=== PATIENT | male | born 1950 | race Caucasian/White ===

== ENCOUNTER → 2017-05-07 | Outpatient (CLI) | payer MEDICARE, BC ==
[~2017-05-07] MED LIST: CALAN PO; FLOMAX0.4 M1 PO; LATANOPROST2.5 ML OU; LO-DOSE ASPIRIN81 M1 PO; NAPROXEN250 MG PO; PAXIL PO; PERCOCET 5/321 UDTAB PO; RELPAX40 MG PO; ZONEGRAN100 MG PO
--- NOTE | ~2017-05-07 | CT130 ---
[facility] A Service of [facility] & [facility] RADIOLOGY TEXT RESULTS PATIENT: MICHAEL ANTONIO LOCATION: [facility] : 48 UNIT #: [id number] AGE: [address]: ARETHA WARREN APRN SEX: M ORDER DR: [id number] [facility] [address] [place], [place] [address] [id number] O MR#: [id number] Acc #: [id number] NAME: MICHAEL ANTONIO : 1950 SEX: M STUDY DATE/TIME: 05/07/2017 12:22 UNIT: [facility] ROOM: STUDY DESCRIPTION: CT Upper Ext Rt Wo Cont Attending Physician: Aretha Warren Aprn Referring Physician: Aretha Warren Aprn Ordering Physician: Aretha Warren Aprn Primary Care Physician: Meagan Mtz M.D. MEDICAL IMAGING REPORT This report is preliminary unless electronic signature is present EXAM CT right shoulder without contrast-with coronal and sagittal reconstructions. DATE OF EXAM: 05/07/2017. HISTORY - Order states CT right shoulder preop planning. Right rotator cuff tear for arthropathy. Rotator cuff tear arthropathy. History sheet states right shoulder surgery 05/15/2017. First surgery 1.5 years ago. Limited motion and pain for 3 months. No known injury. Comparison - Right shoulder radiographs 05/03/2017 and MRI arthrogram right shoulder 10/16/2016 There is advanced glenohumeral cuff tear arthropathy with joint space narrowing, osteophyte formation, and cranial humeral migration with acromial abutment. Small subarticular sclerosis and cyst are noted of the humeral head and glenoid. No fracture is noted. Rotator cuff muscle atrophy is better demonstrated on the MRI of 10/16/2016. No large effusion or calcified loose body is noted. Visualized right thorax is unremarkable. IMPRESSION 1. Advanced right cuff tear arthropathy detailed above. 2. Moderate hypertrophic AC joint arthrosis. 3. Muscle atrophy is better depicted on the MRI of 10/16/2016. 4. No fracture or acute abnormality. Dictated by... Krystina Kingston M.D. [facility] A Service of [facility] & [facility] RADIOLOGY TEXT RESULTS PATIENT: MICHAEL ANTONIO LOCATION: [facility] : 48 UNIT #: [id number] AGE: [address]: ARETHA WARREN APRN SEX: M ORDER DR: THIS IS AN ELECTRONICALLY VERIFIED REPORT Krystina Kingston M.D. at 05/08/2017 11:08 AM Huong TD: 05/07/2017 17:04 JOB #: [id number] MEDICAL IMAGING REPORT Page 1 of 1 COPY
== END | disposition home or self-care (01) ==
LOC: CCAT 10:34
DX: Z01.818 Encounter for other preprocedural examination (principal); M75.101 Unspecified rotator cuff tear or rupture of right shoulder, not specified as traumatic; M19.011 Primary osteoarthritis, right shoulder; M62.511 Muscle wasting and atrophy, not elsewhere classified, right shoulder
CPT/HCPCS: 73200

== ENCOUNTER → 2017-05-07 | Outpatient (CLI) | payer MEDICARE, BC ==
--- NOTE | ~2017-05-07 | EKG ---
PATIENT: MICHAEL ANTONIO UNIT #: [id number] Ventricular Rate: 66 BPM Atrial Rate: 66 BPM P-R Interval: 186 ms QRS Duration: 90 ms Q-T Interval: 402 ms QTC Calculation(Bezet): 421 ms P [place]: 14 degrees Calculated R [place]: 2 degrees Calculated T [place]: 19 degrees Diagnosis Line: Normal sinus rhythm Diagnosis Line: Normal ECG Diagnosis Line: No previous ECGs available Diagnosis Line: Confirmed by CRICKET FISCHER MD ([id number]) on 05/08/2017 Diagnosis Line: 7:13:08 PM INTERPRETING MD: AMADO VAUGHN
[2017-05-07 11:04] LABS: URINE APPEARANCE CLEAR; URINE BILIRUBIN NEG (NEG); URINE BLOOD NEG (NEG); URINE COLOR YELLOW; URINE GLUCOSE NEG (NEG); URINE KETONE NEG (NEG); URINE LEUKOCYTE ESTERASE TRACE (NEG); URINE NITRATE NEG (NEG); URINE PROTEIN NEG (NEG); URINE SPECIFIC GRAVITY 1.022 (1.003-1.035)
[2017-05-07 11:07] LABS: URBCS1 AUWI 0-2 /[HPF] (0-2); URINE BACTERIA AUWI NEG (NEGATIVE); URINE SQUAMOUS EPITHELIAL CELL NONE SEEN /[HPF]
[2017-05-07 11:11] LABS: CULTURE INDICATED? NO
[2017-05-07 11:12] LABS: URINE SOURCE CLEAN CATCH
[2017-05-07 11:14] LABS: HEMATOCRIT 46.4 % (38.0-50.0); HEMOGLOBIN 15.6 gm/dL (13.0-16.0); MEAN CELL VOLUME 91.1 FL (83-96); MEAN CORPUSCULAR HEMOGLOBIN 30.7 PG (28-34); MEAN CORPUSCULAR HGB CONC 33.7 g/dL (30-36); MEAN PLATELET VOLUME 8.3 FL (6.5-11.5); RED BLOOD COUNT 5.1 X10e (3.90-5.60); RED CELL DISTRIBUTION WIDTH 14.4 % (11.0-15.5); WHITE BLOOD COUNT 8.5 X10e3 (4.0-10.5)
[2017-05-07 11:44] LABS: CALCIUM SERUM 9.2 mg/dL (8.4-10.2); CREATININE SERUM 0.9 mg/dL (0.6-1.4); GLOM FILT RATE Estimated 87.5 mL/min (>60); POTASSIUM 4.2 mmol/L (3.5-5.1)
== END | disposition home or self-care (01) ==
LOC: CAMB 10:22
PROVIDERS: Orthopaedic Surgery
DX: Z01.818 Encounter for other preprocedural examination (principal); M75.101 Unspecified rotator cuff tear or rupture of right shoulder, not specified as traumatic; M19.011 Primary osteoarthritis, right shoulder
CPT/HCPCS: 36415; 80048; 81003; 85027; 87070; 93005

== ENCOUNTER 2017-05-15 09:41 | Inpatient (IN) | payer MEDICARE, BC ==
[~2017-05-15] VITALS: Ht 175.3 cm; Wt 110.0 kg
--- NOTE | ~2017-05-15 | OR ---
Unit #: [id number] #: [id number] Patient: MICHAEL ANTONIO [id number] [address] [address] [id number] I MR#: [id number] NAME: MICHAEL ANTONIO ROOM: 452 Date of Procedure: 05/15/2017 Admission Date: 05/15/2017 Surgeon: Curt Luna M.D. : 1950 Attending Physician: Curt Luna M.D. Primary Care Physician: Meagan Mzt M.D. OPERATIVE REPORT PREOPERATIVE DIAGNOSES 1. Right shoulder failed rotator cuff repair and superior capsular reconstruction. 2. Right shoulder cuff tear arthropathy. POSTOPERATIVE DIAGNOSES 1. Right shoulder failed rotator cuff repair and superior capsular reconstruction. 2. Right shoulder cuff tear arthropathy. PROCEDURES PERFORMED 1. Right reverse shoulder arthroplasty. 2. Hardware removal from right shoulder including prior capsular reconstruction graft and suture anchors and FiberTape sutures. IMPLANTS 1. DJO Surgical size 10 press-fit AltiVate stem with a 32 neutral humeral socket liner. 2. DJO Surgical P2 baseplate with a 32, neutral Glenosphere. BAKER CHEF Yuliya Eric APRN, SHOE PLANNER. ANESTHESIA General with interscalene nerve block. ESTIMATED BLOOD LOSS 250 mL. COMPLICATIONS None apparent. DRAINS Medium Hemovac x1. SPECIMENS Humeral head to Pathology. INDICATIONS Mr. Antonio is a 66-year-old gentleman with a massive right rotator cuff tear. He underwent a superior capsular reconstruction and did well for approximately a year. He then returned with recurrent pseudoparalysis and gradually progressive cuff tear arthropathy of the right shoulder. At Unit #: [id number] #: [id number] Patient: MICHAEL ANTONIO this point, he has failed conservative treatment and now elected to proceed with a right reverse shoulder arthroplasty. DESCRIPTION OF PROCEDURE The patient was identified in the preoperative holding area. The operative site was marked. Preoperative antibiotics were administered. A preoperative regional anesthetic block was performed. The patient was brought to the operating room and placed supine on the operating table. A general anesthetic was induced. The patient was then positioned into the beach-chair position. The right upper extremity was prepped and draped in sterile fashion. A skin incision was made over the deltopectoral interval. Dissection was carried down through subcutaneous tissues. The deltopectoral interval was identified. The cephalic vein was identified and retracted medially with the pectoralis major tendon. The subdeltoid space was developed. This was scarred and adherent at the site of the previous surgical intervention for the capsular reconstruction. The subscapularis was absent as well except for the most inferior aspect of the lower subscap. A Alarcon-Deltoid retractor was placed. Adhesions were released. The previous graft material was identified. The sutures were still in place in a suture bridge construct over the humeral head. The graft itself appeared to have ruptured. The remnant of the graft laterally was removed along with the sutures. Suture anchors were removed as well with a rongeur. The remaining subscapularis and medial capsular tissues were taken down, and the shoulder externally rotated. The shoulder was then dislocated anteriorly. There was circumferential osteophyte formation around the inferior humeral neck. An osteotome was utilized to remove the inferior osteophytes. The extramedullary cutting guide was then attached and a humeral head osteotomy performed. The head was cut in approximately 30 degrees of retroversion. The remaining osteophytes were then removed. The shoulder was then dislocated posteriorly and attention turned to glenoid exposure. A circumferential labral release was performed. There were osteophytes on the anterior and posterior aspects of the glenoid. These were removed with an osteotome. The inferior capsular tissues were released off the inferior glenoid neck as well. Care was taken to protect the axillary nerve. Once we had achieved good glenoid exposure, we then drilled our centering hole followed by insertion of the reaming tap. We reamed to the desired depth just through subchondral bone achieving good bleeding surface for an ingrowth. The reaming tap was removed and the baseplate inserted. This achieved excellent purchase in the scapula. We then placed 4 peripheral locking screws. The 32 neutral Glenosphere was then impacted in place. The set screw was secured. Attention was turned back to the humerus. The humerus was reamed with a freehand ball reaming technique. The size 10 humeral stem was opened and impacted in place. This achieved good press fit and good rotational stability. We then trialed with a 32 neutral and a 32, +4 semiconstrained polyethylene liner. The +4 was felt to add excessive tension to the deltoid and we dropped back down to the 32 neutral, which had good stability. The real component was then placed in the shoulder reduced. The subscapularis was not amenable to repair. The wound was irrigated with dilute Betadine solution followed by pulsatile lavage. A drain was placed in the subdeltoid space. The wound was then closed with 0 Vicryl, 2-0 Vicryl, and running Monocryl in the skin. Steri-Strips and sterile dressings were applied. Unit #: [id number] #: [id number] Patient: MICHAEL ANTONIO DISPOSITION The patient was aroused from anesthesia and transported to recovery room in stable condition. Dictated by... Candice Alvarado/juan TD: 05/16/2017 12:17 JOB #: [id number] OPERATIVE REPORT Page 1 of 1 X Curt Luna MD X PROCEDURE OPERATIVE NOTE
--- NOTE | ~2017-05-15 | CR230 ---
[facility] A Service of [facility] & [facility] RADIOLOGY TEXT RESULTS PATIENT: MICHAEL ANTONIO LOCATION: [place] [address]- : [birth year] UNIT #: [id number] AGE: [address]: Curt Luna MD SEX: M ORDER DR: [id number] [facility] [address] [place], [place] [address] [id number] I MR#: [id number] Acc #: [id number] NAME: MICHAEL ANTONIO : 1950 SEX: M STUDY DATE/TIME: 05/15/2017 14:47 UNIT: [facility] ROOM: [facility] STUDY DESCRIPTION: CR Shoulder Min 2 View Rt Attending Physician: Curt Luna M.D. Ordering Physician: Curt Luna M.D. Primary Care Physician: Meagan Mtz M.D. MEDICAL IMAGING REPORT This report is preliminary unless electronic signature is present EXAM Right shoulder, 05/15. INDICATIONS Status post shoulder arthroplasty today. FINDINGS Two views right shoulder were obtained. Patient is status post shoulder arthroplasty. No hardware complications are seen. Alignment is within normal limits. Soft tissue drain is present. There is AC joint arthropathy. IMPRESSION Satisfactory appearance of a right shoulder arthroplasty. AC joint arthropathy is present. Dictated by... Skyler Higgins Jr., M.D. THIS IS AN ELECTRONICALLY VERIFIED REPORT Skyler Higgins Jr., M.D. at 05/16/2017 8:30 AM DESI/quynh TD: 05/16/2017 01:29 JOB #: [id number] MEDICAL IMAGING REPORT Page 1 of 1 COPY
--- NOTE | ~2017-05-15 | DS ---
Unit #: [id number] #: [id number] Patient: MICHAEL ANTONIO [id number] [address] [address] [id number] I MR#: [id number] NAME: MICHAEL ANTONIO ROOM: 45 Age: 66 Sex: M Admission Date: 05/15/2017 : 1950 Discharge Date: 05/16/2017 Attending Physician: Curt Luna M.D. Primary Care Physician: Meagan Mtz M.D. DISCHARGE SUMMARY ADMITTING DIAGNOSIS Right rotator cuff tear arthropathy. DISCHARGE DIAGNOSIS Right rotator cuff tear arthropathy, status post right reverse shoulder arthroplasty. SECONDARY DIAGNOSES Include, 1. Abdominal aortic aneurysm. 2. Cataract. 3. Hypertension. 4. Migraines. 5. Prostate disease. ATTENDING Dr. Luna, Orthopedic Surgery. PROCEDURES On 05/15/2017, the patient underwent a right reverse shoulder arthroplasty. Please see the operative report for further details. BRIEF HISTORY Mr. Antonio is a 66-year-old patient with a history of a prior right shoulder superior capsular reconstruction, which was performed in 08/2015. Postoperatively, he did well for some time, but later he developed failure of the graft. We have been treated his right shoulder pain with cortisone injection. Since then, the cortisone injections have failure to provide him with any pain relief. He has limited range of motion and weakness in the right upper extremity, now interfering with all his routine activities of daily living. Dr. Luna recommended a right reverse shoulder arthroplasty. The risks, benefits, and alternatives were discussed with the patient. He elected to proceed with surgery. HOSPITAL COURSE Postoperatively in the PACU, the patient developed increased bleeding from the incision site. Prevena dressing was then placed over the incision in the PACU. He had 175 mL of serosanguineous drainage out in his Hemovac drain in the PACU. He was then transferred to the orthopedic unit for postoperative care. The night of the surgery was uneventful. He had 85 mL of serosanguineous drainage out of this Hemovac drain overnight and he remained stable. Unit #: [id number] #: [id number] Patient: MICHAEL ANTONIO On postoperative #1, the patient remained stable. He was afebrile and his vital signs were stable. He was awake, alert, and oriented x3, and in no acute distress. His Prevena dressing remained intact with no drainage in the chamber. Hemovac drain remained in place. He has had a total of 260 mL out of his Hemovac drain since the time of surgery. He was neurovascularly intact in the median, ulnar, and radial nerves. He had normal sensation to light touch in all five digits. His hemoglobin was 12.9. His white blood cell count was 12.7. He denies any shortness of breath, cough, body aches, or chills. We will have him continue to use IS every hour while he is awake. Postoperative films of the right shoulder revealed that he is status post right reverse shoulder arthroplasty. Hardware remains in correct anatomical alignment with no evidence of loosing or migration. He will remain nonweightbearing of the right upper extremity in a sling. He may it 2 to 3 times a day to workup pendulums as well as range of motion of the elbow, wrist, and hand. Physical Therapy will work with him today in the assigned exercises. We will have nursing staff remove his Hemovac drain at noon today. He will be discharged home with his Prevena dressing in place. He is on SCDs only for DVT prophylaxis due to high bleeding risk. CONDITION AT DISCHARGE Stable. DISPOSITION The patient will be discharged home, where he has his to help with postoperative care. DISCHARGE MEDICATIONS 1. Flomax 0.4 mg p.o. daily. 2. Zonegran 100 mg p.o. t.i.d. 3. Paxil 20 mg p.o. at bedtime. 4. Verapamil 80 mg p.o. b.i.d. 5. Latanoprost eye drops 2.5 mL each eye at bedtime. 6. Relpax 40 mg p.o. daily as needed for migraines. 7. Percocet 5/325 mg one tablet p.o. q.4 hours p.r.n. The patient was sent home with a prescription for Percocet to dispense 65 tablets. DISCHARGE INSTRUCTIONS The patient will be discharged home today. He will follow up with Dr. Luna on 05/20/2017 to have his Prevena dressing removed. He will keep his Prevena dressing in place until this followup visit. He should not get the dressing wet. He will remain nonweightbearing of the right upper extremity in a sling. He may removed sling 2 to 3 times a day to perform pendulums as well as range of motion of the elbow, wrist, and hand. Dictated by... Aretha Warren APRN for Candice Alvarado/juan TD: 05/20/2017 11:16 JOB #: [id number] Unit #: [id number] #: [id number] Patient: MICHAEL ANTONIO DISCHARGE SUMMARY Page 1 of 1 X ARETHA WARREN APRN X DISCHARGE SUMMARY
[2017-05-15] MEDS ORDERED: PAXIL PO (11:11)
[2017-05-15] MEDS ORDERED: FLOMAX0.4 M1 PO (11:11)
[2017-05-15] MEDS ORDERED: CALAN PO (11:11)
[2017-05-15] MEDS ORDERED: RELPAX40 MG PO (11:12)
[2017-05-15] MEDS ORDERED: LO-DOSE ASPIRIN81 M1 PO (11:12)
[2017-05-15] MEDS ORDERED: ZONEGRAN100 MG PO (11:12)
[2017-05-15] MEDS ORDERED: LATANOPROST2.5 ML OU (11:13)
[2017-05-15] MEDS ORDERED: NAPROXEN250 MG PO (11:13)
[2017-05-16 03:03] LABS: HEMATOCRIT 39.3 % (38.0-50.0); HEMOGLOBIN 12.9 gm/dL (13.0-16.0); MEAN CORPUSCULAR HEMOGLOBIN 30.1 PG (28-34); MEAN CORPUSCULAR HGB CONC 32.7 g/dL (30-36); MEAN PLATELET VOLUME 8.5 FL (6.5-11.5); RED BLOOD COUNT 4.27 X10e (3.90-5.60); RED CELL DISTRIBUTION WIDTH 14.2 % (11.0-15.5); WHITE BLOOD COUNT 12.7 X10e3 (4.0-10.5)
[2017-05-16] MEDS ORDERED: PERCOCET 5/321 UDTAB PO (08:38)
== END 2017-05-16 12:53 | disposition home or self-care (01) | DRG 483 ==
LOC: CSUR 09:41 → CPACUOF 10:22 → CSUR 10:22 → CPACUOF 14:30 → C4B 15:32
PROVIDERS: Orthopaedic Surgery
PROC: 0RPJ0JZ Removal of Synthetic Substitute from Right Shoulder Joint, Open Approach (ICD-10-PCS; 2017-05-15)
PROC: 0RPJ04Z Removal of Internal Fixation Device from Right Shoulder Joint, Open Approach (ICD-10-PCS; 2017-05-15)
PROC: 0RRJ00Z Replacement of Right Shoulder Joint with Reverse Ball and Socket Synthetic Substitute, Open Approach (ICD-10-PCS; principal; 2017-05-15 11:30)
DX: M12.811 Other specific arthropathies, not elsewhere classified, right shoulder (principal); I10 Essential (primary) hypertension; G43.909 Migraine, unspecified, not intractable, without status migrainosus; N40.0 Benign prostatic hyperplasia without lower urinary tract symptoms; I71.4 Abdominal aortic aneurysm, without rupture; Z98.49 Cataract extraction status, unspecified eye; Z96.659 Presence of unspecified artificial knee joint
CPT/HCPCS: 73030; 85027; 94010; 94760; 97110; 97116; 97161; C1713; C1776; G8978-GP; G8979-GP; G8980-GP; J0330; J0690; J1100; J2250; J2405; J2710; J2795; J3010